=== PATIENT | female | born 1950 | race Caucasian/White ===

== ENCOUNTER 2022-09-05 16:54 | Inpatient (IN) | payer OTHER ==
[2022-09-05 17:46] VITALS: BMI 29.2
[2022-09-05] MEDS ORDERED: DICYCLOMINE HCL 10 MG CAPSULE PO PRN (20:33)
[2022-09-05] MEDS ORDERED: BENZOCAINE/MENTHOL (CHLORASEPTIC ) LOZENGE MM PRN (20:33)
[2022-09-05] MEDS ORDERED: methaDONE HCL 10 MG TABLET (FOR DETOX USE ONLY) PO ONE (20:33)
[2022-09-05] MEDS ORDERED: MAG HYDROX/AL HYDROX/SIMETH 30 ML UNIT-DOSE CUP PO PRN (20:33)
[2022-09-05] MEDS ORDERED: MAGNESIUM CITRATE 300 ML BOTTLE PO PRN (20:33)
[2022-09-05] MEDS ORDERED: MAGNESIUM HYDROX 2400MG/30ML ORAL SUSPENSION 30 ML CUP PO PRN (20:33)
[2022-09-05] MEDS ORDERED: LOPERAMIDE HCL 2 MG CAPSULE PO PRN (20:33)
[2022-09-05] MEDS ORDERED: ONDANSETRON *ODT* 4 MG TABLET SL PRN (20:33)
[2022-09-05] MEDS ORDERED: cloNIDine HCL 0.1 MG TABLET PO PRN (20:33)
[2022-09-05] MEDS ORDERED: NALOXONE HCL (KLOXXADO) 8 MG SPRAY NS PRN (20:33)
[2022-09-05] MEDS ORDERED: ACETAMINOPHEN 325 MG TABLET (FP) PO PRN ×2 (20:33)
[2022-09-05] MEDS: hydrOXYzine PAMOATE 25 MG CAPSULE (FP) PO PRN (22:12)
[2022-09-05] MEDS: THIAMINE HCL 100 MG TABLET (FP) PO SCH (22:12)
[2022-09-05] MEDS: MELATONIN 5 MG TABLETS PO SCH (22:13)
[2022-09-05] MEDS: METHOCARBAMOL 500 MG TABLET PO PRN (22:14)
[2022-09-05] MEDS: PRENATAL VITAMINS W/ FOLIC ACID TABLET (FP) PO SCH (22:14)
[2022-09-06] MEDS: PRENATAL VITAMINS W/ FOLIC ACID TABLET (FP) PO SCH (10:27)
[2022-09-06] MEDS: IBUPROFEN 600 MG TABLET (FP) PO PRN ×2 (10:27→19:20)
[2022-09-06 10:47] LABS: HEMATOCRIT 36.9 % (32.4-45.2); HEMOGLOBIN 11.4 GM/dL (10.7-15.3); MCHC 30.8 g/dl (32.0-36.0); MEAN CELL VOLUME 84.4 fl (80-96); PLATELET COUNT 273 10^3/uL (134-434); RBC 4.37 M/mm3 (3.60-5.2); RDW 17.2 % (11.6-15.6); WHITE BLOOD COUNT 7.5 K/mm3 (4.0-10.0)
[2022-09-06 10:49] LABS: ALBUMIN 3.1 g/dl (3.4-5.0); CALCIUM 8.9 mg/dL (8.5-10.1)
[2022-09-06 10:50] LABS: BLOOD UREA NITROGEN 11.6 mg/dL (7-18)
[2022-09-06 10:52] LABS: CREATININE 0.6 mg/dL (0.55-1.3)
[2022-09-06 10:54] LABS: BILIRUBIN,TOTAL 0.3 mg/dL (0.2-1); TOT PROT 5.9 g/dl (6.4-8.2)
[2022-09-06] MEDS ORDERED: ALBUTEROL SO4 HFA INHALER IH PRN (11:36)
[2022-09-06] MEDS ORDERED: BUPRENORPHINE HCL 150 MCG, BUPRENORPHINE HCL 75 MCG BC PRN (11:43)
[2022-09-06] MEDS ORDERED: BUPRENORPHINE HCL 150 MCG, BUPRENORPHINE HCL 75 MCG BC ONE (12:15)
[2022-09-06] MEDS: hydrOXYzine PAMOATE 25 MG CAPSULE (FP) PO PRN ×2 (17:36→22:29)
[2022-09-06] MEDS: diazePAM 5 MG TABLET PO PRN (17:36)
[2022-09-06] MEDS: metFORMIN HCL 500 MG TABLET (FP) PO SCH (17:38)
[2022-09-06] MEDS: METHOCARBAMOL 500 MG TABLET PO PRN (17:38)
[2022-09-06] MEDS: MELATONIN 5 MG TABLETS PO SCH (22:28)
[2022-09-06] MEDS: THIAMINE HCL 100 MG TABLET (FP) PO SCH (22:28)
[2022-09-07] MEDS ORDERED: BUPRENORPHINE HCL 150 MCG, BUPRENORPHINE HCL 75 MCG BC PRN
[2022-09-07] MEDS: BUPRENORPHINE HCL 150 MCG, BUPRENORPHINE HCL 75 MCG BC SCH ×2 (05:50→17:30)
[2022-09-07] MEDS: LEVOTHYROXINE 100 MCG, LEVOTHYROXINE 25 MCG PO SCH (06:32)
[2022-09-07] MEDS: metFORMIN HCL 500 MG TABLET (FP) PO SCH ×2 (06:32→16:54)
[2022-09-07] MEDS ORDERED: LEVOTHYROXINE NA 125 MCG TABLET (FP) PO SCH (07:00)
[2022-09-07] MEDS ORDERED: methaDONE HCL 10 MG TABLET (FOR DETOX USE ONLY) PO ONE (10:00)
[2022-09-07] MEDS: IBUPROFEN 600 MG TABLET (FP) PO PRN (10:13)
[2022-09-07] MEDS: PRENATAL VITAMINS W/ FOLIC ACID TABLET (FP) PO SCH (10:13)
[2022-09-07] MEDS: BISMUTH SUBSALICYLATE 524 MG/30 ML PO PRN (10:14)
[2022-09-07] MEDS: METHOCARBAMOL 500 MG TABLET PO PRN (17:36)
[2022-09-07] MEDS: diazePAM 5 MG TABLET PO PRN (19:28)
[2022-09-07] MEDS: THIAMINE HCL 100 MG TABLET (FP) PO SCH (22:02)
[2022-09-07] MEDS: MELATONIN 5 MG TABLETS PO SCH (22:02)
[2022-09-07] MEDS: hydrOXYzine PAMOATE 25 MG CAPSULE (FP) PO PRN (22:03)
[2022-09-07] MEDS: IBUPROFEN 400 MG TABLET (FP) PO PRN (22:05)
[2022-09-08] MEDS ORDERED: BUPRENORPHINE HCL 450 MCG FILM BC PRN
[2022-09-08] MEDS: METHOCARBAMOL 500 MG TABLET PO PRN ×2 (03:59→14:43)
[2022-09-08] MEDS: IBUPROFEN 600 MG TABLET (FP) PO PRN ×2 (03:59→14:43)
[2022-09-08] MEDS: LEVOTHYROXINE 100 MCG, LEVOTHYROXINE 25 MCG PO SCH (06:10)
[2022-09-08] MEDS: metFORMIN HCL 500 MG TABLET (FP) PO SCH ×2 (06:10→16:58)
[2022-09-08] MEDS: IBUPROFEN 400 MG TABLET (FP) PO PRN ×2 (06:12→18:35)
[2022-09-08] MEDS: BUPRENORPHINE HCL 450 MCG FILM BC SCH ×2 (06:19→17:00)
[2022-09-08] MEDS: PRENATAL VITAMINS W/ FOLIC ACID TABLET (FP) PO SCH (10:24)
[2022-09-08 21:01] VITALS: RESP 18
[2022-09-08] MEDS: MELATONIN 5 MG TABLETS PO SCH (22:05)
[2022-09-08] MEDS: THIAMINE HCL 100 MG TABLET (FP) PO SCH (22:06)
[2022-09-08] MEDS: BISMUTH SUBSALICYLATE 524 MG/30 ML PO PRN (23:13)
[2022-09-09] MEDS: IBUPROFEN 600 MG TABLET (FP) PO PRN ×2 (02:22→08:36)
[2022-09-09] MEDS ORDERED: BUPRENORPHINE/NALOXONE 4 MG/1 MG FILM PACKET SL SCH (06:00)
[2022-09-09] MEDS: metFORMIN HCL 500 MG TABLET (FP) PO SCH (07:38)
[2022-09-09] MEDS: LEVOTHYROXINE 100 MCG, LEVOTHYROXINE 25 MCG PO SCH (07:38)
[2022-09-09 09:50] VITALS: BP 134/75; PULSE 90; TEMP 97.3
[2022-09-09] MEDS ORDERED: methaDONE HCL 10 MG TABLET (FOR DETOX USE ONLY) PO ONE (10:00)
[2022-09-09] MEDS: PRENATAL VITAMINS W/ FOLIC ACID TABLET (FP) PO SCH (10:10)
[2022-09-10] MEDS ORDERED: BUPRENORPHINE/NALOXONE 8 MG/2 MG FILM PACKET SL ONE (06:00)
== END 2022-09-09 11:04 | disposition left against medical advice (07) | DRG 894 ==
LOC: YASAS 16:54 → Y6N 20:45
PROVIDERS: ADMIT Allergy & Immunology; ATTEND Surgery
PROC: HZ2ZZZZ Detoxification Services for Substance Abuse Treatment (ICD-10-PCS; principal; 2022-09-05)
DX: F11.23 Opioid dependence with withdrawal (principal); F19.24 Other psychoactive substance dependence with psychoactive substance-induced mood disorder; F41.0 Panic disorder [episodic paroxysmal anxiety]; E03.9 Hypothyroidism, unspecified; E11.9 Type 2 diabetes mellitus without complications; Z79.84 Long term (current) use of oral hypoglycemic drugs; J45.909 Unspecified asthma, uncomplicated; Z96.642 Presence of left artificial hip joint; Z98.890 Other specified postprocedural states
CPT/HCPCS: 36415; 80053; 82962; 85027; 86780; 93005; 93010; C9803-CS; U0003; U0005